=== PATIENT | male | born 1970 | race Caucasian/White ===

== ENCOUNTER 2021-01-11 20:06 | Emergency (ER) | payer MEDICARE, OTHER ==
[~2021-01-11] VITALS: Ht 172.7 cm; Wt 72.6 kg
[2021-01-11] MEDS ORDERED: KETO10 PO (22:25)
[2021-01-13] MEDS ORDERED: ALPRAZOLAM0.5 M1 PO (14:27)
[2021-01-13] MEDS ORDERED: QUETIAPINE FUM400 M6 PO (14:27)
[2021-01-13] MEDS ORDERED: QUETIAPINE FUMA25 MG PO (14:28)
[2021-01-13] MEDS ORDERED: OMEP20ER PO (14:28)
[2021-01-13] MEDS ORDERED: DULO60 PO (14:29)
[2021-01-13] MEDS ORDERED: CELE200 PO (14:29)
[2021-01-13] MEDS ORDERED: IBUP800 PO (15:41)
== END 2021-01-11 22:42 | disposition home or self-care (01) ==
LOC: ER 20:06
DX: M23.91 Unspecified internal derangement of right knee (principal); Z88.8 Allergy status to other drugs, medicaments and biological substances
CPT/HCPCS: 73562-LT; 99283-25; A9270

== ENCOUNTER 2021-01-13 13:53 | Emergency (ER) | payer MEDICARE, OTHER | END 2021-01-13 15:50 | disposition home or self-care (01) | LOC: ER 13:53 | DX: M77.9 Enthesopathy, unspecified (principal); Z88.8 Allergy status to other drugs, medicaments and biological substances; Z79.899 Other long term (current) drug therapy ==